=== PATIENT | female | born 1970 | race Caucasian/White ===

== ENCOUNTER 2016-11-19 20:24 | Emergency (ER) | payer MEDICARE, OTHER ==
[~2016-11-19 20:24] MED LIST: BUSPAR15 M1 PO; CAT3 PO; CENTRUM TAB1 TAB PO; CEROVITE PO; CITRACAL PO; DEPAKUDL PO; EFFEX75 PO; HEMORRHOID OINTMENT; KLONO1 PO; LEXAPRO20 PO; LOPID6 PO; MIRALAXPKT PO; MOMUD PO; NASACORTAQ NAS; NASAL MOIST0.65 % NAS; PEP20 PO; RISP2 PO; RISP4 PO; SINGULAIR1 PO; TRICOR145 PO; TRILEP300 PO; VITA10 PO; VITAMIN D31000 UNIT PO; [UNRECOGNIZED DRUG - CODE] OR
== END 2016-11-20 02:32 | disposition home or self-care (01) ==
LOC: ER 20:24
DX: S00.83XA Contusion of other part of head, initial encounter (principal); I10 Essential (primary) hypertension; K21.9 Gastro-esophageal reflux disease without esophagitis; Z88.1 Allergy status to other antibiotic agents; Z88.0 Allergy status to penicillin; Z79.899 Other long term (current) drug therapy; W01.0XXA Fall on same level from slipping, tripping and stumbling without subsequent striking against object, initial encounter
CPT/HCPCS: 99283